=== PATIENT | male | born 1950 | race African-American/Black ===

== ENCOUNTER 2019-08-08 12:26 | Inpatient (IN) | payer MEDICARE ==
[~2019-08-08] VITALS: Ht 185.4 cm; Wt 110.7 kg
[2019-08-08] MEDS ORDERED: IPRATROPIUM BROMIDE 0.02% 2.5 ML NEB NEB STA (13:11)
[2019-08-08] MEDS ORDERED: PANTOPRAZOLE 40 MG 10ML VIAL IV STA (13:11)
[2019-08-08] MEDS ORDERED: ALBUTEROL SULF 0.083% NEB SOLN 3 ML NEB NEB STA (13:11)
[2019-08-08] MEDS ORDERED: DEXTROSE 50% SYRINGE 50 ML IV PRN (13:15)
[2019-08-08] MEDS ORDERED: SODIUM CHLORIDE FLUSH 10 ML SYR INJ PRN (13:15)
[2019-08-08 13:56] LABS: BASOPHILS % 0.1 % (0.0-1.0); EOSINOPHILS # (AUTO) 0.1 (0.0-0.4); EOSINOPHILS % 0.9 % (0.0-6.0); HEMATOCRIT 33.4 % (38.2-49.6); HEMOGLOBIN 10.6 g/dL (14.0-18.0); LYMPHOCYTES # (AUTO) 1.8 (1.0-3.2); LYMPHOCYTES % 24.1 % (18.0-39.1); MEAN CORPUSCULAR HGB CONC 31.7 g/dL (31-35); MEAN CORPUSCULAR VOLUME 88.4 fL (81-99); MONOCYTES # (AUTO) 0.7 (0.2-0.8); MONOCYTES % 8.8 % (4.4-11.3); NEUTROPHILS % 65.8 % (38.7-80.0); PLATELET COUNT 197 x10e3/uL (140-360); RED BLOOD COUNT 3.78 x10e6/uL (4.3-5.7); RED CELL DISTRIBUTION WIDTH 15.6 % (11.7-14.4)
[2019-08-08 14:04] LABS: INR 1.04; PROTHROMBIN TIME 14.1 seconds (11.9-14.5)
[2019-08-08 14:05] LABS: PARTIAL THROMBOPLASTIN TIME 32.5 seconds (23.8-35.5)
[2019-08-08 14:15] LABS: ALBUMIN 3.8 g/dL (3.5-5.0); ALBUMIN/GLOBULIN RATIO 1.1 (0.8-2.0); ANION GAP 12.5 mmol/L (8-16); CALCIUM 10.7 mg/dL (8.4-10.2); CREATININE, SERUM 1.45 mg/dL (0.72-1.25); MAGNESIUM 1.7 MG/DL (1.3-2.1); POTASSIUM 4.5 mmol/L (3.5-5.1)
[2019-08-08 14:34] LABS: CREATINE KINASE MB 3.2 ng/mL (0-5.0); THYROID STIMULATING HORMONE 1.361 uIU/mL (0.350-4.940)
--- NOTE | 2019-08-08 15:15 | Diagnostic Imaging Report ---
EXAMINATION: CHEST SINGLE (PORTABLE) INDICATION: Shortness of breath COMPARISON: None FINDINGS: The patient is mildly right rotated. LINES/TUBES:Right chest AICD. LUNGS:The lungs are well-inflated. There is perihilar fullness and indistinctness of the pulmonary vasculature. PLEURA:No pleural effusion or pneumothorax. MEDIASTINUM:The cardia mediastinal silhouette is at the upper limits of normal in size. BONES/SOFT TISSUES:No acute osseous injury. Sternotomy wires in place. ABDOMEN:No free air under the diaphragm. IMPRESSION: Pulmonary edema. Signed by: Prasanth Cha MD on 08/08/2019 3:11 PM
[2019-08-08] MEDS ORDERED: FUROSEMIDE INJ 10 MG/ML 4 ML VIAL IV ONE (15:45)
[2019-08-08] MEDS: INSULIN REGULAR, HUMAN 100 UNIT/1 ML 3ML VIAL SQ SCH ×2 (16:35→21:55)
[2019-08-08 16:40] LABS: BILIRUBIN,URINE NEGATIVE (NEGATIVE); CLARITY,URINE CLEAR (CLEAR); COLOR,URINE YELLOW (YELLOW); KETONES,URINE NEGATIVE (NEGATIVE); LEUKOCYTE ESTERASE ,URINE NEGATIVE (NEGATIVE); NITRITE,URINE NEGATIVE (NEGATIVE); PROTEIN,URINE DIPSTICK 1+ (NEGATIVE); URINE UROBILINOGEN 0.2 mg/dL (0.2 - 1)
[2019-08-08] MEDS: FUROSEMIDE INJ 10 MG/ML 4 ML VIAL IV SCH (16:44)
[2019-08-08 16:51] LABS: EPITHELIAL CELLS,URINE RARE /LPF
[2019-08-08] MEDS ORDERED: CARVEDILOL 12.5 MG TAB PO SCH (17:00)
[2019-08-08 20:30] VITALS: BP 152/98
--- NOTE | 2019-08-08 20:32 | NUR ---
PATIENT ARRIVED FROM ER VIA STRETCHER, AWAKE, ALERT AND ABLE TO MAKE NEEDS KNOWN. PATIENT ASSISTED TO THE BED, RLE PROTHESIS REMOVED. INITIAL ASSESSMENT DONE. POC DISCUSSED AND PATIENT INSTRUCTED TO CALL FOR ASSISTANCE NEEDED AND VERBALIZED UNDERSTANDING.
[2019-08-08 21:20] LABS: CREATINE KINASE MB 2.7 ng/mL (0-5.0)
[2019-08-08] MEDS: TAMSULOSIN HCL 0.4 MG CAP PO SCH (22:24)
[2019-08-08] MEDS: ATORVASTATIN 20 MG TAB PO SCH (22:24)
--- NOTE | 2019-08-08 22:40 | History and Physical ---
PRIMARY CARE PHYSICIAN: Dr. Vadim Ahn at [facility]. CHIEF COMPLAINT: Shortness of breath. HISTORY OF PRESENT ILLNESS: This is a 69-year-old male with past medical history of hypertension, diabetes, CAD, high cholesterol, and neuropathy, presented with complaints of shortness of breath that started about a week ago. He reports taking baking soda to help him with some gas pain. Has been taking 1 teaspoon daily to help with his indigestion. But he noticed that he was having increased shortness of breath. He denies any cough, chest pain, fever, chills, nausea, vomiting, diaphoresis, or abdominal pain. He presented to the ER for increased shortness of breath evaluation. PAST MEDICAL HISTORY: 1. Hypertension. 2. Coronary artery disease, status post catheterization. 3. Diabetes type 2. 4. High cholesterol. 5. Neuropathy pain. 6. Benign prostatic hypertrophy. 7. Systolic CHF. PAST SURGICAL HISTORY: 1. He had triple bypass and defibrillator placed in for CHF. 2. Right BKA. FAMILY MEDICAL HISTORY: Mother had diabetes and hypertension. Father was unremarkable. SOCIAL HISTORY: He quit smoking six years ago. He quit alcohol use six years ago. He denies any drug use. He is a retired [employer]. ALLERGIES: NO KNOWN ALLERGIES. REVIEW OF SYSTEMS: GENERAL: Fatigue and shortness of breath. HEENT: No head trauma. NECK: No pain with movement. LUNGS: Shortness of breath. CARDIOVASCULAR: No chest pain or palpitations. Shortness of breath with exertion. GI: No nausea or vomiting. NEURO: He is alert and oriented. MUSCULOSKELETAL: Right BKA. No edema. SKIN: Dry and intact. PHYSICAL EXAMINATION: VITAL SIGNS: Temperature 97.6, pulse is 69, respirations 18, blood pressure 152/82, pulse ox is 95% on room air. GENERAL: In no acute distress. HEENT: Atraumatic, normocephalic. NECK: Supple. LUNGS: Decreased breath sounds with some wheezing in the lower lobes. CARDIOVASCULAR: Regular rate and rhythm. GI: Soft and nontender. NEUROLOGIC: Alert, awake, and oriented x3. MUSCULOSKELETAL: Right BKA. Left lower extremity with no edema, moves with no limitations. SKIN: Dry and intact. PSYCH: Calm. LABORATORY DATA: WBC 7.54, hemoglobin 10.6, hematocrit 33.4, platelets 197. Sodium 139, potassium 4.5, carbon dioxide 32, BUN is 17, creatinine is 1.45, estimated GFR is 59, glucose 232, calcium 10.7. Creatine kinase 366. Troponin 0.154. BNP is 1712.4. TSH is 1.361. PT is 14.1, INR is 1.04, APTT is 32.5. Blood cultures pending. IMAGING: Chest x-ray shows pulmonary edema. IMPRESSION: 1. Systolic congestive heart failure exacerbation. With acute respiratory distress. Chest x-ray shows pulmonary edema. He was given Lasix IV x1 and started Lasix IV b.i.d. Reports last EF was around 30%. Echo is pending, cardiac enzymes x1 negative. Cardiology has been consulted for further evaluation. Continue telemonitor. 2. Acute kidney injury. Creatinine is 1.45. We will continue with aggressive diuresis. 3. Hypertension. We will start on carvedilol b.i.d. and Lasix. We will await on home medication reconciliation. 4. Diabetes type 2. We will continue Accu-Cheks with sliding scale insulin coverage. 5. History of coronary artery disease, status post coronary artery bypass grafting. We will continue with statin and aspirin for now. 6. High cholesterol. Continue statin. 7. Anemia, hemoglobin 10.6. We will continue to monitor closely and address as needed. 8. Neuropathy, likely due to diabetes. We will treat as needed. 9. Benign prostatic hypertrophy. We will resume Flomax. 10. Right below knee amputation. He uses a prosthesis. PLAN: To continue aggressive IV Lasix diuresis. We will await on echocardiogram, chest x-ray with pulmonary edema. We will repeat chest x-ray tomorrow. We will await on Cardiology evaluation. Dictated by JENN Crump Michael Parra MD MY/MODL /[id number] Seen and examined. Agree with the findings and plan as documented by JENN Espinal. KYLE
[2019-08-08] MEDS ORDERED: HYDRALAZINE HCL 20 MG/ML VIAL IV PRN (22:45)
[2019-08-08] MEDS ORDERED: CARVEDILOL 3.125 MG TAB PO ONE (23:30)
[2019-08-09] VITALS (8 sets, daily range): BP systolic 140–169; BP diastolic 66–81
--- NOTE | 2019-08-09 05:37 | Diagnostic Imaging Report ---
EXAMINATION: CHEST SINGLE (PORTABLE) INDICATION: CHF. COMPARISON: Chest radiograph 08/08/2019. FINDINGS: LINES/TUBES:Right chest AICD with leads in unchanged position. LUNGS:The lungs are well-inflated. There is mild perihilar fullness and indistinctness of the pulmonary vasculature. Mild patchy right basilar opacity. PLEURA:No pleural effusion or pneumothorax. MEDIASTINUM: The cardiomediastinal silhouette is unremarkable. BONES/SOFT TISSUES:No acute osseous abnormality. ABDOMEN:No free air under the diaphragm. IMPRESSION: Mild pulmonary interstitial edema. Signed by: Dr. Joe Soliman MD on 08/09/2019 5:34 AM
[2019-08-09 05:58] LABS: BASOPHILS % 0.3 % (0.0-1.0); EOSINOPHILS # (AUTO) 0.1 (0.0-0.4); EOSINOPHILS % 1.7 % (0.0-6.0); HEMATOCRIT 32.6 % (38.2-49.6); HEMOGLOBIN 10.6 g/dL (14.0-18.0); LYMPHOCYTES # (AUTO) 1.7 (1.0-3.2); LYMPHOCYTES % 24.2 % (18.0-39.1); MEAN CORPUSCULAR HEMOGLOBIN 28.3 pg (28-32); MEAN CORPUSCULAR HGB CONC 32.5 g/dL (31-35); MEAN CORPUSCULAR VOLUME 86.9 fL (81-99); MONOCYTES # (AUTO) 0.7 (0.2-0.8); MONOCYTES % 9.1 % (4.4-11.3); NEUTROPHILS # (AUTO) 4.6 (2.1-6.9); NEUTROPHILS % 64.6 % (38.7-80.0); PLATELET COUNT 201 x10e3/uL (140-360); RED BLOOD COUNT 3.75 x10e6/uL (4.3-5.7); RED CELL DISTRIBUTION WIDTH 15.6 % (11.7-14.4)
[2019-08-09 06:27] LABS: ALANINE AMINOTRANSFERASE 23 IU/L (0-55); ALBUMIN 3.6 g/dL (3.5-5.0); ALBUMIN/GLOBULIN RATIO 1.1 (0.8-2.0); ALKALINE PHOSPHATASE 46 IU/L (40-150); ANION GAP 11.8 mmol/L (8-16); BLOOD UREA NITROGEN 17 mg/dL (7-26); BUN/CREATININE RATIO 13 (6-25); CALCIUM 10.1 mg/dL (8.4-10.2); CARBON DIOXIDE 30 mmol/L (22-29); CHLORIDE 99 mmol/L (98-107); CREATININE, SERUM 1.31 mg/dL (0.72-1.25); EST GLOMERULAR FILTRATION RATE > 60 ML/MIN (60-); GLUCOSE 173 mg/dL (74-118); POTASSIUM 3.8 mmol/L (3.5-5.1); SODIUM 137 mmol/L (136-145)
[2019-08-09] MEDS: INSULIN LISPRO 100 UNIT/1 ML 3ML VIAL SQ SCH ×4 (07:30→20:16)
--- NOTE | 2019-08-09 07:43 | NUR ---
PATIENT IN BED RESTING WITH NO RESPIRATORY DISTRESS. O2 IN PLACE VIA N/C. TELEMETRY BOX 31, RIGHT BKA WITH PROSTHESIS AT BED SIDE. BED IN LOWER POSITION, CALL LIGHT AT REACH.
[2019-08-09] MEDS ORDERED: CARVEDILOL 12.5 MG TAB PO SCH (09:00)
[2019-08-09] MEDS: FUROSEMIDE INJ 10 MG/ML 4 ML VIAL IV SCH ×2 (09:38→17:39)
--- NOTE | 2019-08-09 11:16 | NUR ---
PATIENT ASSISTED WITH SHOWER, BACK IN BED WITH CALL LIGHT AT REACH.
--- NOTE | 2019-08-09 15:57 | NUR ---
MD IN TO SEE PATIENT, NEW ORDERS RECEIVED.
--- NOTE | 2019-08-09 16:07 | NUR ---
RECEIVED ORDER FOR HOME HEALTH FOR PT/SN. DISCUSSED CHOICE W THE PT. ASKED THAT CM CALL HIS ; CORIE @ [phone]. CALLEDWIF AT THE BEDSIDE. NO ANSWER; LEFT VM. PT SIGNED CHOICE LETTER AND STATES WHICH EVER AGENCY THE CHOOSES WILL BE OK.
[2019-08-09] MEDS ORDERED: ENOXAPARIN SOD INJ 40 MG/0.4 ML SYR SC SCH (17:00)
[2019-08-09] MEDS: CARVEDILOL 12.5 MG TAB PO SCH (17:39)
[2019-08-09] MEDS: ASPIRIN 81 MG ENTERIC COATED PO SCH (17:39)
--- NOTE | 2019-08-09 18:30 | NUR ---
Nutrition Screen Note RD Recommendation for Physician: Recommend low sodium/diabetic diet Plan of Care: RD following, monitoring for tolerance and adequacy Nutrition reason for involvement: Diagnosis - CHF Primary Diagnose(s): CHF and dyspnea PMH: HTN, CAD, type 2 diabetes, high cholesterol, neuropathy pain, systolic CHF, triple bypass surgery, right BKA Ht: 73 in Wt:244 lb BMI: 32.18 kg/m2 IBW:[address] Assessment: (08/09/19) Chart reviewed. Labs and meds reviewed. Pt is a 69 year old male admitted with CHF and dyspnea. Pt stated he has a good appetite and has been eating 50% of his meals. Pt mentioned he does not eat as much as he used to in the past. Per observation at time of visit, pt consumed all of his meal tray. No wt loss reported and pt mentioned he usually weighs 244 lbs. No N/V/D/C reported. Pt also mentioned he has missing teeth, but does not need any changes to his diet consistency. Current Diet: ADA Diet Malnutrition Evaluation (08/09/19) The patient does not meet criteria for a specified degree of malnutrition at this time. Will re-evaluate at follow-up as appropriate. Diet Education Needs Assessment: Pt was interested in diet education Learner(s): Pt Barriers: Pt stated he is not able to see well. Cultural/Language Modifications: No cultural/language modifications noted Readiness: Pt was eager to learn Method: Verbal explanation/discussion Topics: diabetic and low sodium diet Understanding/Compliance: Pt verbalized understanding. Nutrition Care Level: low Signed: Cuca Merritt, RD, LD
--- NOTE | 2019-08-09 19:00 | NUR ---
Walking rounds done and report received. Patient is awake, alert and in NAD. Patient voiced he is feeling better today and is breathing easier. Bed in lowest position, locked and call gibson within reach.
[2019-08-09] MEDS: TAMSULOSIN HCL 0.4 MG CAP PO SCH (20:16)
[2019-08-09] MEDS: GABAPENTIN 300 MG CAP PO SCH (20:16)
[2019-08-09] MEDS: ATORVASTATIN 20 MG TAB PO SCH (20:16)
[2019-08-10] VITALS (8 sets, daily range): BP systolic 126–168; BP diastolic 61–80
--- NOTE | 2019-08-10 03:00 | NUR ---
PATIENT RESTING IN BED WITHOUT ANY COMPLAINTS VOICED. CALL PEARL WITHIN REACH.
--- NOTE | 2019-08-10 05:22 | Diagnostic Imaging Report ---
EXAMINATION: CHEST SINGLE (PORTABLE) INDICATION: CHF. COMPARISON: Chest radiograph 08/09/2019. FINDINGS: LINES/TUBES:Right chest AICD with leads in unchanged position. LUNGS:The lungs are well-inflated. There is decreasing mild perihilar fullness and indistinctness of the pulmonary vasculature. Decreased patchy opacity at the right lower lung. PLEURA:No pleural effusion or pneumothorax. MEDIASTINUM: The cardiomediastinal silhouette is unremarkable. BONES/SOFT TISSUES:No acute osseous abnormality. ABDOMEN: No free air under the diaphragm. IMPRESSION: Improving mild pulmonary interstitial edema. Signed by: Dr. Joe Soliman MD on 08/10/2019 5:18 AM
[2019-08-10 06:02] LABS: ANION GAP 13.5 mmol/L (8-16); CALCIUM 10.1 mg/dL (8.4-10.2); CREATININE, SERUM 1.59 mg/dL (0.72-1.25); MAGNESIUM 1.6 MG/DL (1.3-2.1); POTASSIUM 3.5 mmol/L (3.5-5.1)
--- NOTE | 2019-08-10 07:10 | NUR ---
PATIENT IN BED RESTING WITH EYES CLOSED, NO RESPIRATORY DISTRESS OBSERVED. O2 IN PLACE VIA N/C. PROSTHESIS AT BED SIDE. BED IN LOWER POSITION, CALL LIGHT AT REACH.
[2019-08-10] MEDS: INSULIN LISPRO 100 UNIT/1 ML 3ML VIAL SQ SCH ×4 (07:30→21:30)
[2019-08-10] MEDS: ASPIRIN 81 MG ENTERIC COATED PO SCH (08:55)
[2019-08-10] MEDS: FUROSEMIDE INJ 10 MG/ML 4 ML VIAL IV SCH (08:55)
[2019-08-10] MEDS: GABAPENTIN 300 MG CAP PO SCH (08:55)
[2019-08-10] MEDS ORDERED: ASPIRIN 325 MG TAB PO SCH (09:00)
[2019-08-10] MEDS: CARVEDILOL 12.5 MG TAB PO SCH ×2 (09:51→17:07)
--- NOTE | 2019-08-10 11:51 | NUR ---
WALKING ROUND MADE, URINAL EMPTIED AND CLEANSED. CALL LIGHT AT REACH.
[2019-08-10] MEDS: GABAPENTIN 100 MG CAP PO SCH ×2 (15:23→21:30)
--- NOTE | 2019-08-10 15:49 | NUR ---
PATIENT OUT OF BED TO WHEEL CHAIR, WHEELING SELF IN THE HALLWAY. NO COMPLAIN VOICED, WILL CLOSELY MONITOR.
[2019-08-10] MEDS: ENOXAPARIN 30 MG/0.3 ML SYR SC SCH (17:06)
[2019-08-10] MEDS: TAMSULOSIN HCL 0.4 MG CAP PO SCH (21:30)
[2019-08-10] MEDS: ATORVASTATIN 20 MG TAB PO SCH (21:30)
--- NOTE | 2019-08-10 21:30 | NUR ---
PATIENT RESTING IN BED WATCHING TELEVISION, NO SIGNS OF RESPIRATORY DISTRESS NOTED. NASAL CANNULA INTACT AND RUNNING AT 2 LITERS. BED IS LOCKED AND IN LOWEST POSITION, SIDE RAILS ARE UP, CALL LIGHT WITHIN REACH, WILL CONTINUE TO MONITOR.
--- NOTE | 2019-08-10 22:24 | Consultation ---
DATE OF CONSULTATION: Cardiology Consultation The patient is seen in the room. I was asked to evaluate his cardiac condition on 08/10/2019, I am not called for Cardiology, however, nurse asked me to see this patient because my name is shown in the cardiac consultation. I saw the patient, examined the patient. DIAGNOSES: 1. [id number] congestive heart failure. 2. Chronic renal failure. 3. Aortocoronary bypass surgery, stent placed in the past. 4. Type 2 diabetes mellitus. 5. Peripheral arterial disease. 6. Below-knee amputation. 7. Obesity. 8. Possible chronic obstructive pulmonary disease. At this time, the patient does not voice any shortness of breath or chest pain. The patient does not have any acute cardiac symptoms. Troponins are negative, but the patient got chronic renal failure. Echo, ejection fraction less than 20% and the patient is very anxious to go home. The patient usually go to [facility] event coordinator marketing and sales at [facility]. I told at this time I am seeing this one time; however, if he wants, he can follow up with me or Dr. Herrera or he can come to [facility] for further cardiac problems. However, he wants to go back to [facility] and at this time, I am going to sign off from the patient's care as the patient is stable, he may go home. I discussed with Dr. Herrera, also mentioned that I have been asked to see this patient, though I did not get any official consultation. Only this morning, I got call from the nurse that I need to see this patient. Anyway, I saw the patient quite stable. The patient to continue present medications and the patient wishes that he will follow up with his own event coordinator marketing and sales at [facility]. However, the patient got significant ischemic cardiomyopathy. He is also aware about his significant cardiac condition. MD RODRIGUEZ Platt/STEVE /[id number]
[2019-08-11] VITALS (8 sets, daily range): BP systolic 124–148; BP diastolic 59–70
[2019-08-11 05:44] LABS: ANION GAP 14.7 mmol/L (8-16); CALCIUM 9.7 mg/dL (8.4-10.2); CREATININE, SERUM 1.76 mg/dL (0.72-1.25); POTASSIUM 3.7 mmol/L (3.5-5.1)
--- NOTE | 2019-08-11 07:00 | NUR ---
RECEIVED AM REPORT AND ROUNDS DONE. PT IS SLEEPING, NO S/S OF DISTRESS. CALL LIGHT WITHIN REACH , SIDE RAILS UP. FAMILY IS AT THE BEDSIDE
[2019-08-11] MEDS: INSULIN LISPRO 100 UNIT/1 ML 3ML VIAL SQ SCH ×4 (07:30→21:10)
[2019-08-11] MEDS: ASPIRIN 81 MG ENTERIC COATED PO SCH (08:14)
[2019-08-11] MEDS: CARVEDILOL 12.5 MG TAB PO SCH ×2 (08:15→16:31)
[2019-08-11] MEDS: GABAPENTIN 100 MG CAP PO SCH ×3 (08:15→21:10)
--- NOTE | 2019-08-11 11:07 | NUR ---
spoke with Dr. Parra about the patient's creatinine level. Dr. Parra gave orders to redraw a bmp at 1300 to check creatinine again and if it is trending down, then the pt can go home.
--- NOTE | 2019-08-11 12:36 | NUR ---
CALL RECEIVED FROM PT'S , CORIE. DISCUSSED CHOICES FOR HOME HEALTH. STATES HE WAS ON SERVICE W [facility] IN THE PAST, BUT WAS NOT CERTAIN. OK'D REFERRAL TO [facility]. REFERRAL FAXED TO [facility] @ OFF: [phone] / FAX: [phone]
--- NOTE | 2019-08-11 14:16 | NUR ---
HOME HEALTH DISCHARGE NOTE PATIENT ADDRESS WHERE SERVICE WILL BE RECEIVED: [facility] [place] [address] PATIENT CONTACT NUMBER: [phone] /CORIE, PT NAME OF [employer] HEALTH COMPANY: [employer] TELEPHONE/FAX NUMBER OF COMPANY: OFF: [phone] / FAX: [phone] ADDRESS OF [employer]: [address] [place] [address] SERVICES TO RECEIVE: SKILLED NURSE TO EVALUATE AND TREAT, PHYSICAL THERAPY TO EVALUATE AND TREAT ANTICIPATED DATE SERVICES WILL BEGIN: 08/12/2019 Please call the company above if you have not received a call to schedule a home visit within 24 hours of discharge.
[2019-08-11 14:37] LABS: ANION GAP 15.5 mmol/L (8-16); CALCIUM 9.8 mg/dL (8.4-10.2); CREATININE, SERUM 1.9 mg/dL (0.72-1.25); POTASSIUM 4.5 mmol/L (3.5-5.1)
--- NOTE | 2019-08-11 14:50 | NUR ---
IMM LETTER EXPLAINED TO PT. PT VERBALIZED UNDERSTANDING. IMM LETTER SIGNED. COPY TO PT AND COPY TO CHART.
[2019-08-11] MEDS: ENOXAPARIN 30 MG/0.3 ML SYR SC SCH (16:31)
[2019-08-11] MEDS ORDERED: ATORVASTATIN 40 MG TAB PO SCH (21:00)
[2019-08-11] MEDS: TAMSULOSIN HCL 0.4 MG CAP PO SCH (21:10)
[2019-08-12] VITALS: BP 123/58
[2019-08-12 04:00] VITALS: BP 112/56
--- NOTE | 2019-08-12 07:00 | NUR ---
RECEIVED AM REPORT AND ROUNDS DONE. PT IS ALERT RESTING IN BED, NO S/S OF DISTRESS. CALL LIGHT WITHIN REACH AND INSTRUCTED PT TO CALL NURSE FOR HELP
[2019-08-12 07:22] LABS: CALCIUM 9.9 mg/dL (8.4-10.2); CREATININE, SERUM 1.63 mg/dL (0.72-1.25)
[2019-08-12] MEDS: INSULIN LISPRO 100 UNIT/1 ML 3ML VIAL SQ SCH ×2 (07:30→12:51)
[2019-08-12 08:35] VITALS: BP 128/98
[2019-08-12] MEDS: ASPIRIN 81 MG ENTERIC COATED PO SCH (08:43)
[2019-08-12] MEDS: GABAPENTIN 100 MG CAP PO SCH (08:44)
[2019-08-12] MEDS: CARVEDILOL 12.5 MG TAB PO SCH (08:44)
[2019-08-12 09:14] VITALS: BP 128/98
[2019-08-12] MEDS ORDERED: FUROSEMIDE INJ 10 MG/ML 2 ML VIAL IV ONE (10:30)
[2019-08-12 11:51] VITALS: BP 132/62
--- NOTE | 2019-08-12 12:26 | NUR ---
Received order for home o2 set up. CM spoke to pt at bedside. He states Dr. Parra explained everything to him just a few minutes prior. Pt is agreeable to home o2 set up. States to use any company in network with insurance. Choice letter signed for [facility]. Signed copy placed in chart. Copy to pt. ALFREDO called Christopher with [facility] and informed of referral. Order / clinicals faxed to [phone]. Christopher will be by shortly to deliver portable tanks.
--- NOTE | 2019-08-12 12:42 | Discharge Summary ---
PRIMARY CARE DOCTOR: Dr. Vadim Mata. FINAL DIAGNOSIS: Acute systolic congestive heart failure. SECONDARY DIAGNOSES: 1. Acute kidney injury due to over-diuresis, resolving. 2. Stage 3 chronic kidney disease. 3. Coronary artery disease. 4. AICD status. 5. Diabetes. CONSULTANTS: None. PROCEDURE/STUDIES PERFORMED: Echocardiogram. HISTORY: Per H and P. HOSPITAL COURSE: The patient was aggressively diuresed with IV Lasix. He did well. However, given his severe cardiomyopathy with EF of less than 20%, the patient qualifies for home oxygen, which will be set up today. His creatinine did bump with aggressive diuresis. IV Lasix was held and now the creatinine is coming back down. The patient was instructed to follow up with Dr. Mata, his primary care doctor this coming week. The patient was seen and examined today. It took 32 minutes total to discharge this patient today including updating his primary care doctor. CONDITION ON DISCHARGE: Improved. DISCHARGE MEDICATIONS: Please see medication reconciliation form. MD GABINO Sebastian/STEVE /[id number] cc: [facility]
== END 2019-08-12 14:07 | disposition home or self-care (01) | DRG 291 ==
LOC: ER 12:26 → ERHOLD 13:15 → MED/SURG3 20:33
PROVIDERS: ADMIT Internal Medicine; ATTEND Internal Medicine
DX: I13.0 Hypertensive heart and chronic kidney disease with heart failure and stage 1 through stage 4 chronic kidney disease, or unspecified chronic kidney disease (principal); I50.23 Acute on chronic systolic (congestive) heart failure; N17.9 Acute kidney failure, unspecified; I25.10 Atherosclerotic heart disease of native coronary artery without angina pectoris; E78.00 Pure hypercholesterolemia, unspecified; E11.40 Type 2 diabetes mellitus with diabetic neuropathy, unspecified; Z79.4 Long term (current) use of insulin; D64.9 Anemia, unspecified; Z95.1 Presence of aortocoronary bypass graft; Z89.519 Acquired absence of unspecified leg below knee; E11.51 Type 2 diabetes mellitus with diabetic peripheral angiopathy without gangrene; Z95.810 Presence of automatic (implantable) cardiac defibrillator; T50.2X5A Adverse effect of carbonic-anhydrase inhibitors, benzothiadiazides and other diuretics, initial encounter; N18.3 Chronic kidney disease, stage 3 (moderate); N40.0 Benign prostatic hyperplasia without lower urinary tract symptoms; Z89.511 Acquired absence of right leg below knee
CPT/HCPCS: 36415; 71045; 80048; 80053; 81001; 82550; 82553; 82948; 83690; 83735; 83880; 84443; 84484; 85025; 85610; 85730; 87040; 87086; 93005; 93306; 94640; 99284; J0360; J1650; J1817; J1940

== ENCOUNTER 2021-01-11 15:32 | Observation (INO) | payer OTHER, MEDICARE ==
[~2021-01-11] VITALS: Ht 185.4 cm; Wt 110.7 kg
[2021-01-11] MEDS ORDERED: IBUPROFEN 600 MG TAB ONE (15:55)
[2021-01-11] MEDS ORDERED: SODIUM CHLORIDE 0.9% 1000ML 1,000 ML ONE (15:55)
[2021-01-11] MEDS ORDERED: ACETAMINOPHEN 325 MG TAB ONE (15:55)
[2021-01-11] MEDS ORDERED: IBUPROFEN 600 MG TAB PO STA (16:08)
[2021-01-11] MEDS ORDERED: SODIUM CHLORIDE 0.9% 1000ML 1,000 ML IV SCH (16:15)
[2021-01-11] MEDS ORDERED: ACETAMINOPHEN 325 MG TAB PO ONE (16:15)
[2021-01-11 16:18] LABS: BASOPHILS % 0.2 % (0.0-1.0); EOSINOPHILS % 0.1 % (0.0-6.0); HEMATOCRIT 33.4 % (38.2-49.6); HEMOGLOBIN 11.1 g/dL (14.0-18.0); MEAN CORPUSCULAR HEMOGLOBIN 27.8 pg (28-32); MEAN CORPUSCULAR HGB CONC 33.2 g/dL (31-35); MEAN CORPUSCULAR VOLUME 83.7 fL (81-99); MONOCYTES # (AUTO) 0.6 (0.2-0.8); MONOCYTES % 7.1 % (4.4-11.3); NEUTROPHILS # (AUTO) 6.5 (2.1-6.9); NEUTROPHILS % 80.2 % (38.7-80.0); PLATELET COUNT 171 x10e3/uL (140-360); RED BLOOD COUNT 3.99 x10e6/uL (4.3-5.7); RED CELL DISTRIBUTION WIDTH 14.6 % (11.7-14.4)
[2021-01-11 16:29] LABS: INR 1.13; PROTHROMBIN TIME 15.1 seconds (11.9-14.5)
[2021-01-11 16:30] LABS: PARTIAL THROMBOPLASTIN TIME 36.5 seconds (23.8-35.5)
[2021-01-11 16:39] LABS: ALBUMIN 4.1 g/dL (3.5-5.0); ALBUMIN/GLOBULIN RATIO 0.9 (0.8-2.0); CALCIUM 9.1 mg/dL (8.4-10.2); CREATININE, SERUM 2.07 mg/dL (0.72-1.25); MAGNESIUM 1.8 MG/DL (1.3-2.1)
[2021-01-11 16:49] LABS: CREATINE KINASE MB 0.8 ng/mL (0-5.0)
[2021-01-11] MEDS ORDERED: CEFEPIME HCL 1GM 1 GM in SODIUM CHLORIDE 0.9% 50ML 50 ML IV ONE (17:15)
[2021-01-11] MEDS ORDERED: ACETAMINOPHEN 325 MG TAB PO NR (17:15)
[2021-01-11 19:04] LABS: CLARITY,URINE HAZY (CLEAR); COLOR,URINE YELLOW (YELLOW); KETONES,URINE NEGATIVE (NEGATIVE); LEUKOCYTE ESTERASE ,URINE SMALL (NEGATIVE); NITRITE,URINE NEGATIVE (NEGATIVE); PROTEIN,URINE DIPSTICK 2+ (NEGATIVE); URINE UROBILINOGEN 0.2 mg/dL (0.2 - 1)
[2021-01-11 19:05] LABS: AMORPHOUS SEDIMENT,URINE FEW (FEW); BACTERIA,URINE MANY /HPF; EPITHELIAL CELLS,URINE FEW /LPF; MUCUS,URINE MODERATE (RARE); WBC,URINE (MAN) >50 /HPF (0-5)
[2021-01-11] MEDS ORDERED: GLIPIZIDE ER10 MG (19:13)
[2021-01-11] MEDS ORDERED: CLOPIDOGREL75 MG PO (19:13)
[2021-01-11] MEDS ORDERED: CARVEDILOL25 MG PO (19:13)
[2021-01-11] MEDS ORDERED: TAMSULOSIN (19:13)
[2021-01-11] MEDS ORDERED: ISOSORBIDE MONO60 MG (19:13)
[2021-01-11] MEDS ORDERED: ATORVASTATIN CA80 MG PO (19:13)
[2021-01-11] MEDS ORDERED: GABAPENTIN600 MG (19:13)
[2021-01-11] MEDS ORDERED: FAMOTIDINE20 MG (19:13)
[2021-01-11] MEDS ORDERED: ONDANSETRON HCL INJ 2MG/ML 2ML 2 MG/ML VIAL IV PRN (19:30)
[2021-01-11] MEDS ORDERED: DEXTROSE 50% SYRINGE 50 ML IV PRN (19:30)
[2021-01-11] MEDS ORDERED: SODIUM CHLORIDE 0.9% 1000ML 1,000 ML IV ONE (19:30)
[2021-01-11] MEDS ORDERED: ACETAMINOPHEN 325 MG TAB PO PRN (19:30)
[2021-01-11 20:00] VITALS: BP 116/57
[2021-01-11] MEDS: INSULIN REGULAR, HUMAN 100 UNIT/1 ML 3ML VIAL SQ SCH (21:07)
[2021-01-11] MEDS: CEFEPIME HCL 1GM 1 GM in SODIUM CHLORIDE 0.9% 50ML 50 ML IV SCH (21:08)
[2021-01-11 21:30] VITALS: BP 116/57
[2021-01-11] MEDS ORDERED: CEFEPIME HCL 1 GM VIAL IV SCH (22:00)
[2021-01-12] VITALS (8 sets, daily range): BP systolic 130–148; BP diastolic 58–79
[2021-01-12] MEDS: CEFEPIME HCL 1GM 1 GM in SODIUM CHLORIDE 0.9% 50ML 50 ML IV SCH ×3 (05:33→22:25)
[2021-01-12] MEDS ORDERED: SODIUM CHLORIDE 0.9% 50ML 50 ML ONE ×3 (05:37→21:20)
[2021-01-12] MEDS ORDERED: CEFEPIME HCL 1 GM VIAL ONE ×3 (05:37→21:19)
[2021-01-12 07:16] LABS: BASOPHILS % 0.2 % (0.0-1.0); EOSINOPHILS % 0.7 % (0.0-6.0); HEMATOCRIT 32.5 % (38.2-49.6); HEMOGLOBIN 10.5 g/dL (14.0-18.0); LYMPHOCYTES # (AUTO) 0.7 (1.0-3.2); LYMPHOCYTES % 12.4 % (18.0-39.1); MEAN CORPUSCULAR HEMOGLOBIN 27.8 pg (28-32); MEAN CORPUSCULAR HGB CONC 32.3 g/dL (31-35); MONOCYTES # (AUTO) 0.4 (0.2-0.8); MONOCYTES % 6.8 % (4.4-11.3); NEUTROPHILS # (AUTO) 4.7 (2.1-6.9); NEUTROPHILS % 79.6 % (38.7-80.0); PLATELET COUNT 135 x10e3/uL (140-360); RED BLOOD COUNT 3.78 x10e6/uL (4.3-5.7); RED CELL DISTRIBUTION WIDTH 14.8 % (11.7-14.4)
[2021-01-12] MEDS: INSULIN REGULAR, HUMAN 100 UNIT/1 ML 3ML VIAL SQ SCH ×4 (07:30→21:22)
[2021-01-12 07:42] LABS: ALBUMIN 3.5 g/dL (3.5-5.0); ANION GAP 11.9 mmol/L (8-16); CALCIUM 8.5 mg/dL (8.4-10.2); CREATININE, SERUM 2.15 mg/dL (0.72-1.25); POTASSIUM 3.9 mmol/L (3.5-5.1)
[2021-01-12] MEDS ORDERED: FUROSEMIDE INJ 10 MG/ML 4 ML VIAL IV ONE (12:30)
[2021-01-12] MEDS: CARVEDILOL 12.5 MG TAB PO SCH (17:07)
[2021-01-12] MEDS ORDERED: ATORVASTATIN 40 MG TAB PO SCH (21:00)
[2021-01-12] MEDS ORDERED: TAMSULOSIN HCL 0.4 MG CAP PO SCH (21:00)
[2021-01-13] VITALS: BP 118/64
[2021-01-13 04:00] VITALS: BP 107/65
[2021-01-13] MEDS ORDERED: CEFEPIME HCL 1 GM VIAL ONE ×2 (05:08→14:18)
[2021-01-13] MEDS ORDERED: SODIUM CHLORIDE 0.9% 50ML 50 ML ONE ×2 (05:09→14:18)
[2021-01-13] MEDS: CEFEPIME HCL 1GM 1 GM in SODIUM CHLORIDE 0.9% 50ML 50 ML IV SCH ×2 (05:16→14:12)
[2021-01-13 07:00] LABS: BASOPHILS % 0.4 % (0.0-1.0); EOSINOPHILS # (AUTO) 0.1 (0.0-0.4); EOSINOPHILS % 2.1 % (0.0-6.0); HEMATOCRIT 30.2 % (38.2-49.6); HEMOGLOBIN 10.2 g/dL (14.0-18.0); LYMPHOCYTES # (AUTO) 1.3 (1.0-3.2); LYMPHOCYTES % 25.6 % (18.0-39.1); MEAN CORPUSCULAR HEMOGLOBIN 28.1 pg (28-32); MEAN CORPUSCULAR HGB CONC 33.8 g/dL (31-35); MEAN CORPUSCULAR VOLUME 83.2 fL (81-99); MONOCYTES # (AUTO) 0.7 (0.2-0.8); MONOCYTES % 12.7 % (4.4-11.3); PLATELET COUNT 147 x10e3/uL (140-360); RED BLOOD COUNT 3.63 x10e6/uL (4.3-5.7); RED CELL DISTRIBUTION WIDTH 14.6 % (11.7-14.4)
[2021-01-13] MEDS: INSULIN REGULAR, HUMAN 100 UNIT/1 ML 3ML VIAL SQ SCH ×2 (07:30→11:30)
[2021-01-13 07:39] VITALS: BP 106/89
[2021-01-13 07:43] VITALS: BP 106/89
[2021-01-13 07:59] LABS: ANION GAP 12.9 mmol/L (8-16); CALCIUM 8.3 mg/dL (8.4-10.2); CREATININE, SERUM 1.85 mg/dL (0.72-1.25); POTASSIUM 3.9 mmol/L (3.5-5.1)
[2021-01-13] MEDS: CARVEDILOL 12.5 MG TAB PO SCH (08:00)
[2021-01-13] MEDS ORDERED: CLOPIDOGREL BISULFATE 75 MG TAB PO SCH (09:00)
[2021-01-13] MEDS ORDERED: FAMOTIDINE 20 MG TAB PO SCH (09:00)
[2021-01-13] MEDS ORDERED: ISOSORBIDE MONONITRATE 30 MG TAB CR PO SCH ×2 (09:45→13:30)
[2021-01-13 11:34] VITALS: BP 120/97
[2021-01-13] MEDS ORDERED: CIPRO500 MG PO (12:28)
[2021-01-13 15:45] VITALS: BP 116/86
== END 2021-01-13 16:30 | disposition home or self-care (01) ==
LOC: ER 15:50 → ERHOLD 19:18 → MED/SURG3 20:09
PROVIDERS: ADMIT Internal Medicine; ATTEND Internal Medicine
DX: N10 Acute pyelonephritis (principal); B96.20 Unspecified Escherichia coli [E. coli] as the cause of diseases classified elsewhere; E11.22 Type 2 diabetes mellitus with diabetic chronic kidney disease; N18.30 Chronic kidney disease, stage 3 unspecified; N17.9 Acute kidney failure, unspecified; I13.0 Hypertensive heart and chronic kidney disease with heart failure and stage 1 through stage 4 chronic kidney disease, or unspecified chronic kidney disease; I50.9 Heart failure, unspecified; W01.0XXA Fall on same level from slipping, tripping and stumbling without subsequent striking against object, initial encounter; Z99.81 Dependence on supplemental oxygen; Y92.019 Unspecified place in single-family (private) house as the place of occurrence of the external cause; Z95.1 Presence of aortocoronary bypass graft; Z95.810 Presence of automatic (implantable) cardiac defibrillator; Z89.511 Acquired absence of right leg below knee; Z88.8 Allergy status to other drugs, medicaments and biological substances; Z20.822 Contact with and (suspected) exposure to COVID-19; E78.00 Pure hypercholesterolemia, unspecified; I25.10 Atherosclerotic heart disease of native coronary artery without angina pectoris; N40.0 Benign prostatic hyperplasia without lower urinary tract symptoms; Z79.84 Long term (current) use of oral hypoglycemic drugs
CPT/HCPCS: 36415 ×3; 70450; 71045; 72125; 74176; 80048; 80053 ×2; 81001; 82550; 82553; 82948 ×3; 83605; 83735; 83880; 84484; 85025 ×3; 85610; 85730; 87040; 87086; 87186; 93005; 93306; 99285; G0378 ×3; J0692 ×3; J1817; J1940; J7030; U0002

== ENCOUNTER 2021-02-04 15:56 | Emergency (ER) | payer MEDICARE ==
[~2021-02-04] VITALS: Ht 185.4 cm; Wt 110.7 kg
[~2021-02-04 15:56] MED LIST: ATORVASTATIN CA80 MG PO; CARVEDILOL25 MG PO; CIPRO500 MG PO; CLOPIDOGREL75 MG PO; FAMOTIDINE20 MG; GABAPENTIN600 MG; GLIPIZIDE ER10 MG; ISOSORBIDE MONO60 MG; TAMSULOSIN
[2021-02-04 17:36] LABS: CLARITY,URINE CLEAR (CLEAR); COLOR,URINE YELLOW (YELLOW); KETONES,URINE NEGATIVE (NEGATIVE); LEUKOCYTE ESTERASE ,URINE NEGATIVE (NEGATIVE); NITRITE,URINE NEGATIVE (NEGATIVE); PROTEIN,URINE DIPSTICK TRACE (NEGATIVE); URINE UROBILINOGEN 0.2 mg/dL (0.2 - 1)
[2021-02-04 17:43] LABS: BACTERIA,URINE RARE /HPF; RBC,URINE 0-5 /HPF (0-5)
[2021-02-04] MEDS ORDERED: COLACE100 MG PO (18:20)
[2021-02-04] MEDS ORDERED: LACTULOSE20 GM/30 M PO (18:23)
[2021-02-04] MEDS ORDERED: LACTULOSE SYRUP 20 GM/30 ML UDC PO ONE (18:30)
[2021-02-04] MEDS ORDERED: LACTULOSE SYRUP 20 GM/30 ML UDC ONE (18:46)
== END 2021-02-04 19:06 | disposition home or self-care (01) ==
LOC: ER 17:16
DX: K59.00 Constipation, unspecified (principal); I10 Essential (primary) hypertension; E11.9 Type 2 diabetes mellitus without complications; J44.9 Chronic obstructive pulmonary disease, unspecified; I50.9 Heart failure, unspecified; K21.9 Gastro-esophageal reflux disease without esophagitis; E78.5 Hyperlipidemia, unspecified; I25.2 Old myocardial infarction; Z89.511 Acquired absence of right leg below knee
CPT/HCPCS: 74018; 81001; 93005; 99283

== ENCOUNTER 2021-10-28 10:19 | Emergency (ER) | payer MEDICARE ==
[~2021-10-28] VITALS: Ht 185.4 cm; Wt 110.7 kg
[~2021-10-28 10:19] MED LIST changes: +COLACE100 MG PO; +LACTULOSE20 GM/30 M PO
[2021-10-28 11:40] LABS: BASOPHILS % 0.1 % (0.0-1.0); HEMATOCRIT 32.2 % (38.2-49.6); LYMPHOCYTES # (AUTO) 0.6 (1.0-3.2); LYMPHOCYTES % 7.5 % (18.0-39.1); MEAN CORPUSCULAR HEMOGLOBIN 28.7 pg (28-32); MEAN CORPUSCULAR HGB CONC 31.1 g/dL (31-35); MEAN CORPUSCULAR VOLUME 92.3 fL (81-99); MONOCYTES # (AUTO) 0.3 (0.2-0.8); MONOCYTES % 3.8 % (4.4-11.3); NEUTROPHILS # (AUTO) 6.9 (2.1-6.9); NEUTROPHILS % 88.3 % (38.7-80.0); PLATELET COUNT 180 x10e3/uL (140-360); RED BLOOD COUNT 3.49 x10e6/uL (4.3-5.7); RED CELL DISTRIBUTION WIDTH 15.8 % (11.7-14.4)
[2021-10-28 12:02] LABS: ALBUMIN 3.9 g/dL (3.5-5.0); ALBUMIN/GLOBULIN RATIO 1.2 (0.8-2.0); ANION GAP 13.6 mmol/L (8-16); CALCIUM 9.5 mg/dL (8.4-10.2); CREATININE, SERUM 1.45 mg/dL (0.72-1.25); POTASSIUM 3.6 mmol/L (3.5-5.1)
[2021-10-28] MEDS ORDERED: FUROSEMIDE INJ 10 MG/ML 4 ML VIAL IV ONE (12:30)
[2021-10-28] MEDS ORDERED: LASIX20 MG PO (13:19)
== END 2021-10-28 14:03 | disposition home or self-care (01) ==
LOC: ER 10:22
DX: R06.00 Dyspnea, unspecified (principal); I50.9 Heart failure, unspecified; R05.9 Cough, unspecified; E11.65 Type 2 diabetes mellitus with hyperglycemia; I10 Essential (primary) hypertension; J44.9 Chronic obstructive pulmonary disease, unspecified; E78.5 Hyperlipidemia, unspecified; K21.9 Gastro-esophageal reflux disease without esophagitis; Z20.822 Contact with and (suspected) exposure to COVID-19; I25.2 Old myocardial infarction; Z95.810 Presence of automatic (implantable) cardiac defibrillator; Z95.1 Presence of aortocoronary bypass graft; Z89.511 Acquired absence of right leg below knee
CPT/HCPCS: 36415; 71045; 80053; 83880; 84484; 85025; 99284; J1940; U0002

== ENCOUNTER 2021-12-29 13:02 | Emergency (ER) | payer MEDICARE ==
[~2021-12-29] VITALS: Ht 185.4 cm; Wt 110.7 kg
[~2021-12-29 13:02] MED LIST changes: +LASIX20 MG PO
[2021-12-29] MEDS ORDERED: SODIUM CHLORIDE 0.9% 1000ML 500 ML IV STA (13:13)
[2021-12-29 13:33] LABS: BASOPHILS % 0.2 % (0.0-1.0); EOSINOPHILS % 0.3 % (0.0-6.0); HEMATOCRIT 30.3 % (38.2-49.6); HEMOGLOBIN 9.7 g/dL (14.0-18.0); LYMPHOCYTES # (AUTO) 1.1 (1.0-3.2); LYMPHOCYTES % 11.5 % (18.0-39.1); MEAN CORPUSCULAR HEMOGLOBIN 25.7 pg (28-32); MEAN CORPUSCULAR VOLUME 80.4 fL (81-99); MONOCYTES # (AUTO) 0.6 (0.2-0.8); MONOCYTES % 5.7 % (4.4-11.3); NEUTROPHILS % 81.9 % (38.7-80.0); PLATELET COUNT 150 x10e3/uL (140-360); RED BLOOD COUNT 3.77 x10e6/uL (4.3-5.7); RED CELL DISTRIBUTION WIDTH 18.1 % (11.7-14.4)
[2021-12-29 13:51] LABS: ALBUMIN 3.4 g/dL (3.5-5.0); ALBUMIN/GLOBULIN RATIO 0.7 (0.8-2.0); ANION GAP 15.2 mmol/L (8-16); CALCIUM 9.1 mg/dL (8.4-10.2); CREATININE, SERUM 1.93 mg/dL (0.72-1.25); POTASSIUM 4.2 mmol/L (3.5-5.1)
[2021-12-29] MEDS ORDERED: SODIUM CHLORIDE 0.9% 50ML 50 ML ONE (15:03)
[2021-12-29] MEDS ORDERED: IOPAMIDOL 370 MG/ML 200 ML INFUS..BTL INJ ONE (15:03)
[2021-12-29 15:06] LABS: CLARITY,URINE SL CLOUDY (CLEAR); COLOR,URINE STRAW (YELLOW); LEUKOCYTE ESTERASE ,URINE NEGATIVE (NEGATIVE); NITRITE,URINE NEGATIVE (NEGATIVE); PROTEIN,URINE DIPSTICK 1+ (NEGATIVE)
[2021-12-29 15:07] LABS: KETONES,URINE NEGATIVE (NEGATIVE); URINE UROBILINOGEN 0.2 mg/dL (0.2 - 1)
[2021-12-29] MEDS ORDERED: SODIUM CHLORIDE 0.9% 50ML 0 ML ONE (15:11)
[2021-12-29 15:14] LABS: BACTERIA,URINE MODERATE /HPF
[2021-12-29] MEDS ORDERED: MAGNESIUM CITR296 ML PO (15:57)
[2021-12-29] MEDS ORDERED: LACTULOSE SYRUP 20 GM/30 ML UDC PO ONE (16:15)
== END 2021-12-29 16:24 | disposition home or self-care (01) ==
LOC: ER 13:06
DX: R10.30 Lower abdominal pain, unspecified (principal); R33.9 Retention of urine, unspecified; K59.00 Constipation, unspecified; E11.65 Type 2 diabetes mellitus with hyperglycemia; Z20.822 Contact with and (suspected) exposure to COVID-19; I10 Essential (primary) hypertension; J44.9 Chronic obstructive pulmonary disease, unspecified; I50.9 Heart failure, unspecified; I25.10 Atherosclerotic heart disease of native coronary artery without angina pectoris; K21.9 Gastro-esophageal reflux disease without esophagitis; E78.5 Hyperlipidemia, unspecified; Z89.511 Acquired absence of right leg below knee; Z95.810 Presence of automatic (implantable) cardiac defibrillator; Z95.1 Presence of aortocoronary bypass graft
CPT/HCPCS: 36415; 74177; 80053; 81001; 85025; 87086; 87186; 99284; J7030; Q9967; U0002; 51700